=== PATIENT | female | born 1945 | race Caucasian/White ===

== ENCOUNTER → 2016-10-29 | Outpatient (CLI) | payer MEDICARE, OTHER ==
[~2016-10-29] MED LIST: COLACE-DPS100 MG PO; FLEXERIL DPS5 MG PO; GLUCOPHAGE1000 MG PO; LASIX40 M1 PO; LOPRESSOR DPS50 MG PO; LYRICA50 MG PO; PERCOCET 5 DPS1 TAB PO; PRADAXA150 MG PO; RESTORIL DPS15 MG PO; TYLENOL DPS325 MG PO; ZANTAC DPS150 MG PO
== END | disposition home or self-care (01) ==
LOC: RAD.S 12:40
DX: M79.604 Pain in right leg (principal); M79.605 Pain in left leg; R60.0 Localized edema